=== PATIENT | female | born 1965 | race Caucasian/White ===

== ENCOUNTER 2016-08-19 16:24 | Emergency (ER) | payer OTHER ==
[~2016-08-19] VITALS: Ht 170.1 cm; Wt 77.1 kg
[~2016-08-19 16:24] MED LIST: ALBUTEROL0.09 MG/A2 IH; AMITRIPTYLINE50 MG PO; ATIVAN1 MG PO; BACTRIM DS 8001 TA1 PO; BENTYL10 MG PO; CALCIUM WITH D1 CTB PO; CATAFLAM50 MG PO; CEFDINIR300 MG PO; CELEXA20 MG PO; CIPRO500 MG PO; CIPROFLOXACIN500 MG PO; CLINDAMYCIN300 MG PO; CLONAZEPAM1 MG PO; CLONAZEPAM2 MG PO; COLACE100 MG PO; CORDROL20 MG PO; DARVOCET N 1001 TAB PO; DAYPRO600 M1 PO; DONNATAL1 TAB PO; DOXYCYCLINE MO100 MG PO; FIORICET 325 MG1 TAB PO; FLAGYL500 MG PO; FLEXERIL10 MG PO; FLEXERIL5 MG PO; HYDROCODONE BIT1 T11 PO; KEFLEX500 MG PO; LASIX40 MG PO; LISINOPRIL5 MG PO; Lidex 0.05% Cre15 GM PO; MIRALAX POWDER17 G1 PO; MIRALAX17 GM/DOSE PO; MOTRIN400 MG PO; NEURONTIN300 MG PO; OSCAL/D,OYSTER250 MG PO; PEPCID20 MG PO; POTASSIUM CHLO20 MEQ PO; PREDNICOT20 MG PO; PREDNISONE10 MG PO; PRILOSEC20 M1 PO; TRAMADOL HCL50 MG PO; VIBRA-TAB100 MG PO; VIBRAMYCIN100 MG PO; VICODIN 5-3001 EACH PO; VICODIN 5/500 505 MG PO; VICODIN 500 MG-1 TAB PO; XANAX1 MG PO; ZITHROMAX Z PA250 MG PO; ZOFRAN ODT4 MG SL; ZOFRAN4 MG PO
[2016-08-19] MEDS ORDERED: Ciprofloxacin500 MG PO (16:37)
[2016-08-19 17:07] LABS: BILIRUBIN NEGATIVE (NEGATIVE); BLOOD NEGATIVE (NEGATIVE); CLARITY SL CLOUDY (CLEAR); COLOR YELLOW (YELLOW); GLUCOSE NEGATIVE (NEGATIVE); KETONE NEGATIVE (NEGATIVE); LEUKO ESTERASE NEGATIVE (NEGATIVE); NITRITE NEGATIVE (NEGATIVE); PH 5.5 (5.0-9.0); PROTEIN NEGATIVE (NEGATIVE); SPECIFIC GRAVITY 1.025 (1.005-1.030); UROBILINOGEN 0.2 E.U./dl (0.2-1.0)
[2016-08-19 17:09] LABS: BASO # 0.1 10*3/uL (0.0-0.1); BASO % 0.6 % (0.0-1.0); EOS # 0.2 10*3/uL (0.0-0.4); EOS % 1.9 % (1.0-4.0); HEMATOCRIT 44.9 % (37.0-47.0); HEMOGLOBIN 15.1 g/dl (12.0-16.0); LYMPH # 3.6 10*3/uL (1.3-4.4); LYMPH % 33.5 % (27.0-41.0); MEAN CELL VOLUME 86.8 fl (81.0-99.0); MEAN CORPUSCULAR HGB 29.2 pg (27.0-31.0); MEAN CORPUSCULAR HGB CONC 33.6 g/dl (33.0-37.0); MONO # 0.6 10*3/uL (0.1-1.0); MONO % 5.9 % (3.0-9.0); NEUT # 6.2 10*3/uL (2.3-7.9); NEUT % 57.7 % (47.0-73.0); PLATELET COUNT AUTOMATED 238 10*3/uL (130-400); RED BLOOD COUNT 5.17 10*6/uL (4.10-5.10); RED CELL DISTRI WIDTH 13.2 % (0-14.5); WHITE BLOOD COUNT 10.7 10*3/uL (4.8-10.8)
[2016-08-19 17:16] LABS: URINE REFLEX COMMENT NO (NO); WBC 0-2 wbc/hpf (0-5)
[2016-08-19 17:19] LABS: BUN 14 mg/dl (7-24); CARBON DIOXIDE 24 mmol/L (21-32); CHLORIDE 106 mmol/L (98-107); EST GLOM FILT AFRICAN AMERICAN > 60 ml/min; GLUCOSE 100 mg/dL (65-99); POTASSIUM 4.2 mmol/L (3.5-5.1); SODIUM 140 mmol/L (136-145)
[2016-08-19] MEDS ORDERED: ZOFRAN ODT4 MG SL (17:24)
[2016-08-19] MEDS ORDERED: OMNICEF300 MG PO (17:24)
== END 2016-08-19 18:05 | disposition home or self-care (01) ==
LOC: ED 16:24
PROVIDERS: Physician Assistant
DX: R30.0 Dysuria (principal); R35.0 Frequency of micturition; R11.0 Nausea; Z98.51 Tubal ligation status; Z79.899 Other long term (current) drug therapy

== ENCOUNTER 2016-10-04 17:02 | Emergency (ER) | payer OTHER ==
[~2016-10-04] VITALS: Ht 170.1 cm; Wt 81.6 kg
[~2016-10-04 17:02] MED LIST changes: +Ciprofloxacin500 MG PO; +OMNICEF300 MG PO
[2016-10-04 18:19] LABS: BILIRUBIN NEGATIVE (NEGATIVE); BLOOD NEGATIVE (NEGATIVE); CLARITY CLEAR (CLEAR); COLOR YELLOW (YELLOW); GLUCOSE NEGATIVE (NEGATIVE); KETONE NEGATIVE (NEGATIVE); LEUKO ESTERASE NEGATIVE (NEGATIVE); NITRITE NEGATIVE (NEGATIVE); PH 5.5 (5.0-9.0); PROTEIN NEGATIVE (NEGATIVE); UROBILINOGEN 0.2 E.U./dl (0.2-1.0)
[2016-10-04 18:29] LABS: EPITHELIAL CELLS 0-2; URINE REFLEX COMMENT NO (NO); WBC 0-2 wbc/hpf (0-5)
[2016-10-04] MEDS ORDERED: CYCLOBENZAPRINE10 MG PO (18:44)
[2016-10-04] MEDS ORDERED: PREDNISONE10 MG PO (18:44)
== END 2016-10-04 18:54 | disposition home or self-care (01) ==
LOC: ED 17:02
PROVIDERS: Registered Nurse
DX: M54.30 Sciatica, unspecified side (principal); F17.200 Nicotine dependence, unspecified, uncomplicated; Z79.899 Other long term (current) drug therapy

== ENCOUNTER → 2017-03-04 | Outpatient (CLI) | payer OTHER ==
[~2017-03-04] MED LIST changes: +CYCLOBENZAPRINE10 MG PO
== END | disposition home or self-care (01) ==
LOC: MAMMO 09:52
DX: Z12.31 Encounter for screening mammogram for malignant neoplasm of breast (principal)

== ENCOUNTER → 2017-03-18 | Outpatient (CLI) | payer OTHER ==
[2017-03-18 12:10] LABS: BASO # 0.1 10*3/uL (0.0-0.1); BASO % 0.4 % (0.0-1.0); EOS # 0.2 10*3/uL (0.0-0.4); EOS % 1.2 % (1.0-4.0); HEMATOCRIT 41.8 % (37.0-47.0); HEMOGLOBIN 13.8 g/dl (12.0-16.0); LYMPH # 2.4 10*3/uL (1.3-4.4); LYMPH % 16.1 % (27.0-41.0); MEAN CELL VOLUME 85.1 fl (81.0-99.0); MEAN CORPUSCULAR HGB 28.1 pg (27.0-31.0); MEAN PLATELET VOLUME 9.8 fl (9.6-12.3); MONO # 0.8 10*3/uL (0.1-1.0); MONO % 5.3 % (3.0-9.0); NEUT # 11.1 10*3/uL (2.3-7.9); NEUT % 76.5 % (47.0-73.0); PLATELET COUNT AUTOMATED 221 10*3/uL (130-400); RED BLOOD COUNT 4.91 10*6/uL (4.10-5.10); RED CELL DISTRI WIDTH 13.4 % (0-14.5); WHITE BLOOD COUNT 14.6 10*3/uL (4.8-10.8)
[2017-03-18 12:33] LABS: ALBUMIN 3.7 gm/dl (3.1-4.5); ALKALINE PHOSPHATASE 117 U/L (45-117); BUN 7 mg/dl (7-24); CHLORIDE 104 mmol/L (98-107); CREATININE 0.95 mg/dL (0.55-1.02); POTASSIUM 3.6 mmol/L (3.5-5.1); SGOT/AST 29 IU/L (3-35); SGPT/ALT 41 U/L (12-78); SODIUM 139 mmol/L (136-145); TOTAL PROTEIN 7.9 gm/dL (6.4-8.2)
[2017-03-20 18:08] LABS: INFLUENZA A ANTIBODIES 1:16 (Neg:<1:8); INFLUENZA B ANTIBODIES 1:32 (Neg:<1:8)
== END | disposition home or self-care (01) ==
LOC: LAB 11:23
PROVIDERS: Internal Medicine
DX: J44.1 Chronic obstructive pulmonary disease with (acute) exacerbation (principal); B34.9 Viral infection, unspecified

== ENCOUNTER 2018-11-16 12:04 | Emergency (ER) | payer OTHER ==
[~2018-11-16] VITALS: Ht 170.1 cm; Wt 93.4 kg
[~2018-11-16 12:04] MED LIST changes: +MYCOLOG CREAM 115 GM T
[2018-11-16 12:05] VITALS: BP 151/80
[2018-11-16] MEDS ORDERED: REXULTI0.25 MG PO (12:44)
[2018-11-16 12:45] LABS: BILIRUBIN NEGATIVE (NEGATIVE); BLOOD NEGATIVE (NEGATIVE); CLARITY CLEAR (CLEAR); COLOR YELLOW (YELLOW); GLUCOSE NEGATIVE (NEGATIVE); KETONE NEGATIVE (NEGATIVE); LEUKO ESTERASE NEGATIVE (NEGATIVE); NITRITE NEGATIVE (NEGATIVE); SPECIFIC GRAVITY 1.015 (1.005-1.030); UROBILINOGEN 0.2 E.U./dl (0.2-1.0)
[2018-11-16] MEDS ORDERED: PROTONIX20 MG PO (12:47)
[2018-11-16 13:04] LABS: RBC 0-2 rbc/hpf (0-2)
[2018-11-16 13:31] LABS: BASO # 0.1 10*3/uL (0.0-0.1); BASO % 0.8 % (0.0-1.0); EOS # 0.2 10*3/uL (0.0-0.4); EOS % 2.1 % (1.0-4.0); HEMOGLOBIN 14.4 g/dl (12.0-16.0); LYMPH # 3.4 10*3/uL (1.3-4.4); LYMPH % 37.6 % (27.0-41.0); MEAN CELL VOLUME 88.2 fl (81.0-99.0); MEAN CORPUSCULAR HGB 28.2 pg (27.0-31.0); MEAN PLATELET VOLUME 9.3 fl (9.6-12.3); MONO # 0.5 10*3/uL (0.1-1.0); MONO % 5.4 % (3.0-9.0); NEUT # 4.8 10*3/uL (2.3-7.9); NEUT % 53.7 % (47.0-73.0); PLATELET COUNT AUTOMATED 258 10*3/uL (130-400); RED CELL DISTRI WIDTH 14.6 % (0-14.5)
[2018-11-16 13:43] LABS: ALBUMIN 3.4 gm/dl (3.1-4.5); ALKALINE PHOSPHATASE 106 U/L (45-117); BUN 12 mg/dl (7-24); CHLORIDE 108 mmol/L (98-107); LIPASE 136 U/L (73-393); POTASSIUM 3.9 mmol/L (3.5-5.1); SGOT/AST 15 IU/L (3-35); SGPT/ALT 27 U/L (12-78); SODIUM 138 mmol/L (136-145); TOTAL PROTEIN 7.4 gm/dL (6.4-8.2)
[2018-11-16 13:45] VITALS: BP 125/66
[2018-11-16] MEDS ORDERED: PREDNISONE20 M1 PO (16:09)
[2018-11-16] MEDS ORDERED: ROBAXIN500 M1 PO (16:09)
== END 2018-11-16 16:44 | disposition home or self-care (01) ==
LOC: ED 12:04 → EDHOLD 15:39 → ED 15:39
PROVIDERS: Physician Assistant
DX: M54.42 Lumbago with sciatica, left side (principal); M54.41 Lumbago with sciatica, right side; R35.0 Frequency of micturition; K21.9 Gastro-esophageal reflux disease without esophagitis; Z79.899 Other long term (current) drug therapy

== ENCOUNTER 2018-12-23 11:30 | Emergency (ER) | payer OTHER ==
[~2018-12-23] VITALS: Ht 170.1 cm; Wt 95.3 kg
[~2018-12-23 11:30] MED LIST changes: +PREDNISONE20 M1 PO; +PROTONIX20 MG PO; +REXULTI0.25 MG PO; +ROBAXIN500 M1 PO
[2018-12-23] MEDS ORDERED: PREDNISONE50 MG PO (11:53)
[2018-12-23] MEDS ORDERED: CYCLOBENZAPRINE10 MG PO (11:53)
== END 2018-12-23 12:10 | disposition home or self-care (01) ==
LOC: ED 11:30
DX: M54.42 Lumbago with sciatica, left side (principal); Z79.899 Other long term (current) drug therapy

== ENCOUNTER 2019-01-09 19:55 | Emergency (ER) | payer OTHER ==
[~2019-01-09] VITALS: Ht 170.1 cm; Wt 81.6 kg
[~2019-01-09 19:55] MED LIST changes: +PREDNISONE50 MG PO
[2019-01-09] MEDS ORDERED: ROBAXIN-750750 MG PO (22:04)
[2019-01-09] MEDS ORDERED: PREDNISONE10 M1 PO (22:04)
== END 2019-01-09 22:20 | disposition home or self-care (01) ==
LOC: ED 19:55
DX: M54.42 Lumbago with sciatica, left side (principal); G89.29 Other chronic pain; F17.200 Nicotine dependence, unspecified, uncomplicated; Z79.899 Other long term (current) drug therapy

== ENCOUNTER 2019-01-19 16:27 | Emergency (ER) | payer OTHER ==
[~2019-01-19] VITALS: Ht 170.1 cm; Wt 83.9 kg
[~2019-01-19 16:27] MED LIST changes: +PREDNISONE10 M1 PO; +ROBAXIN-750750 MG PO
== END 2019-01-19 18:37 | disposition home or self-care (01) ==
LOC: ED 16:27
DX: M54.42 Lumbago with sciatica, left side (principal); Z79.899 Other long term (current) drug therapy

== ENCOUNTER 2020-12-11 19:43 | Emergency (ER) | payer OTHER ==
[~2020-12-11] VITALS: Ht 170.1 cm; Wt 99.8 kg
[2020-12-11] MEDS ORDERED: CEPHALEXIN500 M1 PO (22:05)
[2020-12-11] MEDS ORDERED: SEPTDS PO (22:05)
== END 2020-12-11 22:22 | disposition home or self-care (01) ==
LOC: ED 19:43
DX: N61.1 Abscess of the breast and nipple (principal); Z79.899 Other long term (current) drug therapy; Z98.1 Arthrodesis status

== ENCOUNTER → 2021-06-26 | Outpatient (CLI) | payer OTHER ==
[~2021-06-26] MED LIST changes: +CEPHALEXIN500 M1 PO; +SEPTDS PO
== END | disposition home or self-care (01) ==
LOC: US 06-25 09:30
PROVIDERS: ATTEND Internal Medicine
DX: K76.0 Fatty (change of) liver, not elsewhere classified (principal); K82.4 Cholesterolosis of gallbladder; N85.4 Malposition of uterus; R11.2 Nausea with vomiting, unspecified

== ENCOUNTER → 2021-07-17 | Outpatient (CLI) | payer OTHER ==
[2021-07-17 09:39] LABS: BUN 11 mg/dl (7-24); CHLORIDE 106 mmol/L (98-107); CREATININE 0.92 mg/dL (0.55-1.02); POTASSIUM 3.9 mmol/L (3.5-5.1); SGOT/AST 17 IU/L (3-35); SGPT/ALT 28 U/L (12-78); SODIUM 140 mmol/L (136-145); TOTAL PROTEIN 7.6 gm/dL (6.4-8.2)
[2021-07-17 09:48] LABS: ALKALINE PHOSPHATASE 83 U/L (45-117)
== END | disposition home or self-care (01) ==
LOC: NM 07:00 → LAB 07:12
PROVIDERS: ATTEND Internal Medicine
DX: R11.2 Nausea with vomiting, unspecified (principal); I10 Essential (primary) hypertension

== ENCOUNTER 2021-08-07 10:15 | Emergency (ER) | payer OTHER ==
[~2021-08-07] VITALS: Wt 95.3 kg
[2021-08-07] MEDS ORDERED: PHENTERMINE H37.5 M1 PO (10:51)
[2021-08-07] MEDS ORDERED: REXULTI2 MG PO (10:51)
[2021-08-07] MEDS ORDERED: CITALOPRAM40 MG PO (10:52)
[2021-08-07] MEDS ORDERED: DOXEPIN HCL50 MG PO (10:52)
[2021-08-07] MEDS ORDERED: LORAZEPAM1 MG PO (10:52)
[2021-08-07] MEDS ORDERED: IBU800 M2 PO (10:54)
== END 2021-08-07 11:20 | disposition home or self-care (01) ==
LOC: ED 10:15
DX: S46.911A Strain of unspecified muscle, fascia and tendon at shoulder and upper arm level, right arm, initial encounter (principal); Z79.899 Other long term (current) drug therapy; F17.200 Nicotine dependence, unspecified, uncomplicated; Z98.51 Tubal ligation status; W18.39XA Other fall on same level, initial encounter; Y93.89 Activity, other specified; Y92.89 Other specified places as the place of occurrence of the external cause; Y99.8 Other external cause status

== ENCOUNTER → 2021-09-08 | Day surgery (SDC) | payer OTHER ==
[~2021-09-08] VITALS: Ht 170.1 cm; Wt 90.7 kg
[~2021-09-08] MED LIST changes: +CITALOPRAM40 MG PO; +DOXEPIN HCL50 MG PO; +IBU800 M2 PO; +LORAZEPAM1 MG PO; +PHENTERMINE H37.5 M1 PO; +REXULTI2 MG PO
[2021-09-08 09:00] VITALS: BP 134/66
[2021-09-08 10:48] VITALS: BP 108/72
[2021-09-08 11:03] VITALS: BP 108/70
[2021-09-08 11:18] VITALS: BP 111/66
== END | disposition home or self-care (01) ==
LOC: SDC 09-04 11:00
PROVIDERS: ATTEND Surgery
DX: R19.7 Diarrhea, unspecified (principal); K57.30 Diverticulosis of large intestine without perforation or abscess without bleeding; K29.50 Unspecified chronic gastritis without bleeding; F41.9 Anxiety disorder, unspecified; F32.9 Major depressive disorder, single episode, unspecified; K21.00 Gastro-esophageal reflux disease with esophagitis, without bleeding; I10 Essential (primary) hypertension; J44.9 Chronic obstructive pulmonary disease, unspecified; Z98.890 Other specified postprocedural states; F17.210 Nicotine dependence, cigarettes, uncomplicated; Z79.899 Other long term (current) drug therapy

== ENCOUNTER 2023-11-06 19:00 | Emergency (ER) | payer OTHER ==
[~2023-11-06] VITALS: Ht 170.1 cm; Wt 84.4 kg
[2023-11-06 19:36] LABS: BASO # 0.1 10*3/uL (0.0-0.1); BASO % 0.6 % (0.0-1.0); EOS # 0.2 10*3/uL (0.0-0.4); EOS % 1.4 % (1.0-4.0); HEMATOCRIT 40.3 % (37.0-47.0); LYMPH % 39.8 % (27.0-41.0); MEAN CELL VOLUME 88.4 fl (81.0-99.0); MEAN CORPUSCULAR HGB 29.4 pg (27.0-31.0); MEAN CORPUSCULAR HGB CONC 33.3 g/dl (33.0-37.0); MEAN PLATELET VOLUME 9.2 fl (9.6-12.3); MONO # 0.7 10*3/uL (0.1-1.0); MONO % 5.8 % (3.0-9.0); NEUT # 6.5 10*3/uL (2.3-7.9); PLATELET COUNT AUTOMATED 271 10*3/uL (130-400); RED BLOOD COUNT 4.56 10*6/uL (4.10-5.10); RED CELL DISTRI WIDTH 13.6 % (0-14.5); WHITE BLOOD COUNT 12.4 10*3/uL (4.8-10.8)
[2023-11-06 20:09] LABS: BUN 7 mg/dl (9-23); CHLORIDE 108 mmol/L (98-107); POTASSIUM 3.7 mmol/L (3.4-5.1)
[2023-11-06] MEDS ORDERED: PREDNISONE20 M1 PO (20:14)
[2023-11-06] MEDS ORDERED: methylPREDNISolone sod succ 125 MG VIAL IM ONE (20:15)
[2023-11-06] MEDS ORDERED: Acetaminophen/Oxycodone 5 MG/325 MG TABLET PO ONE (20:15)
== END 2023-11-06 20:19 | disposition home or self-care (01) ==
LOC: ED 19:00
PROVIDERS: Nurse Practitioner Family
DX: S29.012A Strain of muscle and tendon of back wall of thorax, initial encounter (principal); S46.912A Strain of unspecified muscle, fascia and tendon at shoulder and upper arm level, left arm, initial encounter; F32.A Depression, unspecified; F41.9 Anxiety disorder, unspecified; K21.9 Gastro-esophageal reflux disease without esophagitis; I10 Essential (primary) hypertension; J44.9 Chronic obstructive pulmonary disease, unspecified; Z98.51 Tubal ligation status; Z98.890 Other specified postprocedural states; X50.0XXA Overexertion from strenuous movement or load, initial encounter; Y93.89 Activity, other specified; Y92.89 Other specified places as the place of occurrence of the external cause; Y99.8 Other external cause status

== ENCOUNTER 2024-01-10 10:48 | Emergency (ER) | payer OTHER ==
[~2024-01-10] VITALS: Ht 170.1 cm; Wt 81.6 kg
[2024-01-10] MEDS ORDERED: LORAZEPAM0.5 M1 PO (11:17)
[2024-01-10] MEDS ORDERED: ATORVASTATIN CA40 M1 PO (11:17)
[2024-01-10] MEDS ORDERED: SODIUM CHLORIDE 0.9% 1,000 ML IV ONE (11:30)
[2024-01-10] MEDS ORDERED: Ondansetron Hydrochloride 4 MG/2 ML VIAL IV ONE (11:30)
[2024-01-10 11:46] LABS: BASO # 0.1 10*3/uL (0.0-0.1); BASO % 0.5 % (0.0-1.0); EOS # 0.1 10*3/uL (0.0-0.4); EOS % 0.9 % (1.0-4.0); HEMATOCRIT 46.6 % (37.0-47.0); LYMPH # 4.1 10*3/uL (1.3-4.4); LYMPH % 34.6 % (27.0-41.0); MEAN CELL VOLUME 88.6 fl (81.0-99.0); MEAN CORPUSCULAR HGB 29.1 pg (27.0-31.0); MEAN CORPUSCULAR HGB CONC 32.8 g/dl (33.0-37.0); MEAN PLATELET VOLUME 9.3 fl (9.6-12.3); MONO # 0.8 10*3/uL (0.1-1.0); MONO % 6.9 % (3.0-9.0); NEUT # 6.7 10*3/uL (2.3-7.9); NEUT % 56.8 % (47.0-73.0); PLATELET COUNT AUTOMATED 264 10*3/uL (130-400); RED BLOOD COUNT 5.26 10*6/uL (4.10-5.10); RED CELL DISTRI WIDTH 13.7 % (0-14.5); WHITE BLOOD COUNT 11.7 10*3/uL (4.8-10.8)
[2024-01-10 12:13] LABS: ALKALINE PHOSPHATASE 100 U/L (46-116); CHLORIDE 105 mmol/L (98-107); LIPASE 37 U/L (12-53); POTASSIUM 3.9 mmol/L (3.4-5.1); SGPT/ALT 23 U/L (5-49); TOTAL PROTEIN 7.8 gm/dL (6.0-8.0)
[2024-01-10 12:19] LABS: BUN < 5 mg/dl (9-23)
[2024-01-10 12:29] LABS: BILIRUBIN Negative (Negative); BLOOD Negative (Negative); CLARITY Clear (Clear); COLOR Yellow (Yellow); GLUCOSE Negative (Negative); KETONE Negative (Negative); LEUKO ESTERASE 1+ (Negative); NITRITE Negative (Negative)
[2024-01-10 12:44] LABS: RBC 0-2 rbc/hpf (0-2)
[2024-01-10] MEDS ORDERED: OMNICEF300 MG PO (12:58)
[2024-01-10] MEDS ORDERED: NAPROSYN500 MG PO (12:58)
[2024-01-10] MEDS ORDERED: Ondansetron4 MG PO (12:58)
[2024-01-10] MEDS ORDERED: Ketorolac Tromethamine 15 MG/ML VIAL IV ONE (13:00)
[2024-01-10] MEDS ORDERED: Acetaminophen/Hydrocodone 5 MG/325 MG TABLET PO ONE (13:00)
[2024-01-10] MEDS ORDERED: Ceftriaxone Sodium 1 GM/10 ML SYR IV ONE (13:00)
== END 2024-01-10 13:25 | disposition home or self-care (01) ==
LOC: ED 10:48
PROVIDERS: Nurse Practitioner Family
DX: G89.29 Other chronic pain (principal); R10.32 Left lower quadrant pain; M79.602 Pain in left arm; D72.829 Elevated white blood cell count, unspecified; R11.2 Nausea with vomiting, unspecified; J44.9 Chronic obstructive pulmonary disease, unspecified; I10 Essential (primary) hypertension; K21.9 Gastro-esophageal reflux disease without esophagitis; F32.A Depression, unspecified; E78.5 Hyperlipidemia, unspecified; F41.9 Anxiety disorder, unspecified; Z98.890 Other specified postprocedural states

== ENCOUNTER 2024-05-10 16:19 | Emergency (ER) | payer OTHER ==
[~2024-05-10] VITALS: Wt 79.4 kg
[~2024-05-10 16:19] MED LIST changes: +ATORVASTATIN CA40 M1 PO; +LORAZEPAM0.5 M1 PO; +NAPROSYN500 MG PO; +Ondansetron4 MG PO
[2024-05-10] MEDS ORDERED: SODIUM CHLORIDE 0.9% 1,000 ML IV ONE ×2 (18:15→22:20)
[2024-05-10] MEDS ORDERED: Ketorolac Tromethamine 15 MG/ML VIAL IV ONE (18:15)
[2024-05-10 18:54] LABS: BASO % 0.4 % (0.0-1.0); EOS % 0.1 % (1.0-4.0); HEMATOCRIT 47.3 % (37.0-47.0); MEAN CELL VOLUME 90.4 fl (81.0-99.0); MEAN CORPUSCULAR HGB 28.5 pg (27.0-31.0); MEAN CORPUSCULAR HGB CONC 31.5 g/dl (33.0-37.0); MEAN PLATELET VOLUME 9.3 fl (9.6-12.3); MONO # 0.7 10*3/uL (0.1-1.0); MONO % 6.8 % (3.0-9.0); NEUT # 7.3 10*3/uL (2.3-7.9); NEUT % 75.4 % (47.0-73.0); PLATELET COUNT AUTOMATED 175 10*3/uL (130-400); RED BLOOD COUNT 5.23 10*6/uL (4.10-5.10); RED CELL DISTRI WIDTH 13.2 % (0-14.5); WHITE BLOOD COUNT 9.7 10*3/uL (4.8-10.8)
[2024-05-10 19:13] LABS: POTASSIUM 3.2 mmol/L (3.4-5.1)
[2024-05-10 21:18] LABS: BILIRUBIN Negative (Negative); BLOOD Negative (Negative); CLARITY Cloudy (Clear); COLOR Dark Yellow (Yellow); GLUCOSE Negative (Negative); KETONE Trace (Negative); LEUKO ESTERASE 2+ (Negative); NITRITE Negative (Negative)
[2024-05-10 21:49] LABS: BACTERIA 3+; WBC 21-30 wbc/hpf (0-5)
[2024-05-10] MEDS ORDERED: cefTRIAXone Sodium 1 GM/10 ML SYR IV ONE (22:20)
[2024-05-10] MEDS ORDERED: Ciprofloxacin Hydrochloride 500 MG TAB PO ONE (22:35)
[2024-05-10] MEDS ORDERED: CIPRO500 MG PO (22:39)
[2024-05-10] MEDS ORDERED: POTASSIUM CHLORIDE 20 MEQ TAB PO ONE (22:40)
[2024-05-10] MEDS ORDERED: Ondansetron4 MG PO (22:59)
== END 2024-05-10 22:48 | disposition home or self-care (01) ==
LOC: ED 16:19
PROVIDERS: Emergency Medicine
DX: B34.9 Viral infection, unspecified (principal); Z20.822 Contact with and (suspected) exposure to COVID-19; R42 Dizziness and giddiness; N39.0 Urinary tract infection, site not specified; E87.6 Hypokalemia; F32.A Depression, unspecified; F41.9 Anxiety disorder, unspecified; K21.9 Gastro-esophageal reflux disease without esophagitis; I10 Essential (primary) hypertension; J44.9 Chronic obstructive pulmonary disease, unspecified; E78.5 Hyperlipidemia, unspecified; Z98.890 Other specified postprocedural states

== ENCOUNTER 2024-05-13 17:58 | Emergency (ER) | payer OTHER ==
[~2024-05-13] VITALS: Ht 167.6 cm; Wt 77.1 kg
[2024-05-13] MEDS ORDERED: ACETAMINOPHEN 325 MG TAB PO ONE (18:30)
[2024-05-13] MEDS ORDERED: Ondansetron Hydrochloride 4 MG/2 ML VIAL IV ONE (18:30)
[2024-05-13] MEDS ORDERED: IBUPROFEN 600 MG TAB PO ONE (18:30)
[2024-05-13] MEDS ORDERED: SODIUM CHLORIDE 0.9% 1,000 ML IV ONE (18:30)
[2024-05-13 18:47] LABS: MEAN CELL VOLUME 89.1 fl (81.0-99.0); MEAN CORPUSCULAR HGB 28.9 pg (27.0-31.0); MEAN CORPUSCULAR HGB CONC 32.4 g/dl (33.0-37.0); MEAN PLATELET VOLUME 9.3 fl (9.6-12.3); PLATELET COUNT AUTOMATED 175 10*3/uL (130-400); RED CELL DISTRI WIDTH 13.1 % (0-14.5); WHITE BLOOD COUNT 5.9 10*3/uL (4.8-10.8)
[2024-05-13 18:53] LABS: MANUAL DIFF REFLEX YES
[2024-05-13 19:07] LABS: CHLORIDE 107 mmol/L (98-107); POTASSIUM 3.7 mmol/L (3.4-5.1)
[2024-05-13 19:08] LABS: BUN < 5 mg/dl (9-23)
[2024-05-13 19:14] LABS: ATYPICAL LYMPHS 4 % (0-0); PLATELET SUFFICIENCY NORMAL (NORMAL); TOTAL CELLS COUNTED 100 #CELLS
[2024-05-13 19:59] LABS: BILIRUBIN Negative (Negative); BLOOD Negative (Negative); CLARITY Clear (Clear); COLOR Yellow (Yellow); GLUCOSE Negative (Negative); KETONE Negative (Negative); LEUKO ESTERASE Trace (Negative); NITRITE Negative (Negative); UROBILINOGEN 0.2 E.U./dl (0.0-1.0)
[2024-05-13 20:38] LABS: RBC 0-2 rbc/hpf (0-2)
== END 2024-05-13 21:05 | disposition home or self-care (01) ==
LOC: ED 17:58
PROVIDERS: Nurse Practitioner Family
DX: B34.9 Viral infection, unspecified (principal); Z20.822 Contact with and (suspected) exposure to COVID-19; F32.A Depression, unspecified; F41.9 Anxiety disorder, unspecified; K21.9 Gastro-esophageal reflux disease without esophagitis; I10 Essential (primary) hypertension; J44.9 Chronic obstructive pulmonary disease, unspecified; E78.5 Hyperlipidemia, unspecified; R53.81 Other malaise; R42 Dizziness and giddiness; Z98.890 Other specified postprocedural states

== ENCOUNTER 2024-06-14 14:54 | Emergency (ER) | payer OTHER ==
[~2024-06-14] VITALS: Wt 77.1 kg
[2024-06-14] MEDS ORDERED: NAPROXEN500 MG PO (15:11)
[2024-06-14] MEDS ORDERED: CYCLOBENZAPRINE5 M3 PO (15:11)
[2024-06-14] MEDS ORDERED: Ketorolac Tromethamine 30 MG/ML VIAL IM ONE (15:15)
[2024-06-14] MEDS ORDERED: methylPREDNISolone sod succ 125 MG VIAL IM ONE (15:15)
== END 2024-06-14 15:30 | disposition home or self-care (01) ==
LOC: ED 14:54
DX: M54.41 Lumbago with sciatica, right side (principal); I10 Essential (primary) hypertension; M79.604 Pain in right leg; F32.A Depression, unspecified; F41.9 Anxiety disorder, unspecified; K21.9 Gastro-esophageal reflux disease without esophagitis; J44.9 Chronic obstructive pulmonary disease, unspecified; E78.5 Hyperlipidemia, unspecified; Z98.890 Other specified postprocedural states

== ENCOUNTER 2024-12-17 14:34 | Emergency (ER) | payer OTHER ==
[~2024-12-17] VITALS: Ht 170.1 cm; Wt 81.6 kg
[~2024-12-17 14:34] MED LIST changes: +CYCLOBENZAPRINE5 M3 PO; +NAPROXEN500 MG PO
[2024-12-17] MEDS ORDERED: SODIUM CHLORIDE 0.9% 1,000 ML IV ONE (14:50)
[2024-12-17] MEDS ORDERED: Ondansetron Hydrochloride 4 MG/2 ML VIAL IV ONE (14:55)
[2024-12-17 15:07] LABS: BASO # 0.1 10*3/uL (0.0-0.1); BASO % 0.6 % (0.0-1.0); EOS # 0.2 10*3/uL (0.0-0.4); EOS % 0.9 % (1.0-4.0); MEAN CELL VOLUME 89.3 fl (81.0-99.0); MEAN CORPUSCULAR HGB 29.0 pg (27.0-31.0); MEAN PLATELET VOLUME 9.4 fl (9.6-12.3); MONO # 0.9 10*3/uL (0.1-1.0); MONO % 5.6 % (3.0-9.0); NEUT # 11.2 10*3/uL (2.3-7.9); NEUT % 70.9 % (47.0-73.0); NUCLEATED RED BLOOD CELL 0.0 % (0.0-0.0); NUCLEATED RED BLOOD CELL 0.0 10*3/uL (0.0-0.0); PLATELET COUNT AUTOMATED 275 10*3/uL (130-400); RED CELL DISTRI WIDTH 15.2 % (0-14.5)
[2024-12-17 15:27] LABS: BUN 10 mg/dl (9-23)
[2024-12-17 16:17] LABS: BILIRUBIN Negative (Negative); BLOOD Negative (Negative); CLARITY Clear (Clear); COLOR Yellow (Yellow); KETONE Negative (Negative); LEUKO ESTERASE Trace (Negative); NITRITE Negative (Negative); PH 6.0 (4.5-8.0); SPECIFIC GRAVITY 1.010 (1.001-1.030); UROBILINOGEN 0.2 E.U./dl (0.0-1.0)
[2024-12-17 16:37] LABS: BACTERIA TRACE; RBC 0-2 rbc/hpf (0-2)
[2024-12-17] MEDS ORDERED: SEPTDS PO (16:37)
[2024-12-17] MEDS ORDERED: Ondansetron4 MG PO (16:37)
[2024-12-17] MEDS ORDERED: PERCOCET 5-3251 EACH PO (16:37)
== END 2024-12-17 17:04 | disposition home or self-care (01) ==
LOC: ED 14:34
PROVIDERS: Emergency Medicine
DX: N12 Tubulo-interstitial nephritis, not specified as acute or chronic (principal); I10 Essential (primary) hypertension; Z79.899 Other long term (current) drug therapy